=== PATIENT | female | born 2000 | race Caucasian/White ===

== ENCOUNTER 2021-03-02 12:03 | Emergency (ER) | payer OTHER ==
[~2021-03-02] VITALS: Ht 165.1 cm; Wt 72.6 kg
[2021-03-02] MEDS ORDERED: NEURONTIN100 MG PO (12:18)
[2021-03-02] MEDS ORDERED: PAXIL40 MG PO (12:19)
[2021-03-02] MEDS ORDERED: DEPO-PROVE150 MG/11 IM (12:19)
[2021-03-02] MEDS ORDERED: BIRTH CONTROL (12:20)
[2021-03-02 12:42] LABS: ABSOLUTE LYMPHOCYTES 1.8 thou/uL (0.8-5.3); ABSOLUTE MONOCYTES 0.3 thou/uL (0.0-1.2); ABSOLUTE NEUTROPHILS 2.8 thou/uL (1.6-8.1); BASOPHILS 0.6 %; EOSINOPHILS 0.7 %; HEMATOCRIT 37.5 % (37.0-47.0); MCH 29.8 pg (26.0-34.0); MCHC 34.7 g/dL (28.0-37.0); MCV 85.9 fL (80.0-100.0); MONOCYTES 5.7 %; MPV 7.7 fl. (7.2-11.1); NUCLEATED RBCS 0 /100WBC; PLATELET COUNT* 183 thou/uL (150-400); RBC 4.36 mil/uL (4.20-5.00); RDW-CV 12.7 % (10.5-14.5); WBC 4.9 thou/uL (4.0-11.0)
[2021-03-02 12:49] LABS: CALCIUM 9.3 mg/dL (8.5-10.1); CREATININE 0.7 mg/dL (0.6-1.3); POTASSIUM 4.1 mmol/L (3.5-5.1)
[2021-03-02 12:54] LABS: ALBUMIN 4.2 g/dL (3.4-5.0); TOTAL BILIRUBIN 0.5 mg/dL (<0.1-1.0); TOTAL PROTEIN 7.3 g/dL (6.4-8.2)
[2021-03-02 13:34] LABS: URINE BILIRUBIN NEGATIVE (Negative); URINE BLOOD TRACE (Negative); URINE CLARITY CLEAR; URINE COLOR YELLOW; URINE GLUCOSE-RANDOM NEGATIVE (Negative); URINE KETONES 1+ (Negative); URINE LEUKOCYTES-REFLEX TRACE (Negative); URINE NITRITE-REFLEX NEGATIVE (Negative); URINE PROTEIN NEGATIVE (Negative); URINE SPECIFIC GRAVITY >= 1.030 (1.005-1.030); URINE UROBILINOGEN 0.2 E.U./dl (0.2-1.0)
[2021-03-02 13:41] LABS: BACTERIA-REFLEX 1-9 Few /HPF (None Seen); CASTS None Seen /LPF (None Seen); MUCUS 0-3 Light strn/LPF (None Seen); SQUAMOUS 0-3 Few /LPF (0-3); URINE RBC 3-10 Few /HPF (0-2); URINE WBC-REFLEX 0-5 Rare /HPF (0-5)
[2021-03-02 13:42] LABS: CRYSTALS None Seen /LPF (None Seen)
[2021-03-02 13:59] VITALS: BP 114/72
--- NOTE | 2021-03-02 14:52 | EKG ---
[place] [address] ELECTROCARDIOGRAM REPORT Name: MIL BARRY Room: [facility]#: [id number] Admission: 03/02/21 Attend Phys: Discharge: 03/02/21 Date of : [birth year] Date of Service: 03/02/21 1327 Report #: [id number] THIS REPORT FOR: //name// [facility] ED Test Date: 2021-03-02 Test Time: 13:27:59 Pat Name: MIL BARRY Department: Room: Gender: F Pie Cutter: : 2000 Requested By: Zenobia Daniel Order Number: [id number] MD: Eder Doe Measurements Intervals [place] Rate: 69 P: 48 AK: 148 QRS: 59 QRSD: 93 T: 37 QT: 380 QTc: 407 Interpretive Statements Sinus rhythm No previous ECG available for comparison Electronically Signed On 03-02-2021 14:52:29 CDT by Eder Doe [email or web address] <ELECTRONICALLY SIGNED> By: Eder Doe MD, [facility] 03/02/21 1452 26 26 Eder Doe MD, FACC /EPI
== END 2021-03-02 14:00 | disposition home or self-care (01) ==
LOC: M.ERS 12:03
PROVIDERS: Nurse Practitioner Family
DX: S00.33XA Contusion of nose, initial encounter (principal); R55 Syncope and collapse; N80.9 Endometriosis, unspecified; Z88.6 Allergy status to analgesic agent; W18.39XA Other fall on same level, initial encounter; Y93.89 Activity, other specified; Y92.89 Other specified places as the place of occurrence of the external cause; Y99.8 Other external cause status

== ENCOUNTER 2021-05-22 23:01 | Emergency (ER) | payer OTHER ==
[~2021-05-22] VITALS: Ht 165.1 cm; Wt 70.3 kg
[~2021-05-22 23:01] MED LIST: BIRTH CONTROL; DEPO-PROVE150 MG/11 IM; NEURONTIN100 MG PO; PAXIL40 MG PO
[2021-05-23 02:00] VITALS: BP 120/71
--- NOTE | 2021-05-23 10:04 | EKG ---
[place] [address] ELECTROCARDIOGRAM REPORT Name: MIL BARRY Room: [facility]#: [id number] Admission: 05/22/21 Attend Phys: Discharge: 05/23/21 Date of : [birth year] Date of Service: 05/22/21 2316 Report #: [id number] THIS REPORT FOR: //name// [facility] ED Test Date: 2021-05-22 Test Time: 23:16:10 Pat Name: MIL BARRY Department: Room: Gender: F Chuck Tender: [place] : 2000 Requested By: Yesenia Mackey Order Number: [id number] MD: Cheo Syed Measurements Intervals [place] Rate: 86 P: 60 OK: 149 QRS: 58 QRSD: 90 T: 27 QT: 336 QTc: 402 Interpretive Statements Sinus rhythm RSR' in V1 or V2, right VCD or RVH Baseline wander in lead(s) II,aVR,aVF,V1,V2,V3,V4,V5,V6 Compared to ECG 03/02/2021 13:27:59 RSR' in V1 or V2 now present Electronically Signed On 05-23-2021 10:04:21 CDT by Cheo Syed [email or web address] <ELECTRONICALLY SIGNED> By: Cheo Syed MD, [facility] 05/23/21 1004 2316 Cheo Syed MD, [facility] /EPI
== END 2021-05-23 02:00 | disposition home or self-care (01) ==
LOC: M.ERS 23:01
DX: R55 Syncope and collapse (principal); E86.0 Dehydration; Z88.8 Allergy status to other drugs, medicaments and biological substances; Z91.040 Latex allergy status